=== PATIENT | female | born 1970 | race Two or more races ===

== ENCOUNTER → 2017-10-17 09:18 | Outpatient (CLI) | payer MEDICAID | END | disposition home or self-care (01) | LOC: D.RAD 09:18 | DX: R13.10 Dysphagia, unspecified (principal) ==

== ENCOUNTER → 2017-12-18 12:22 | Outpatient (CLI) | payer MEDICAID | END | disposition home or self-care (01) | LOC: D.RAD 12:22 | DX: R13.12 Dysphagia, oropharyngeal phase (principal) ==

== ENCOUNTER → 2018-10-17 09:04 | Outpatient (CLI) | payer MEDICAID | END | disposition home or self-care (01) | LOC: D.US 10-16 12:13 | DX: R10.10 Upper abdominal pain, unspecified (principal) ==